=== PATIENT | male | born 1960 | race American Indian/Alaskan Native ===

== ENCOUNTER 2019-01-16 08:07 | Emergency (ER) | payer OTHER ==
[2019-01-16 08:28] VITALS: BP 133/81
[2019-01-16] MEDS ORDERED: CYCLOBENZAPRINE 10 MG TAB PO ONE (08:46)
[2019-01-16] MEDS ORDERED: KETOROLAC 30 MG/1 ML INJ IM ONE (08:46)
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
== END 2019-01-16 09:44 | disposition home or self-care (01) ==
LOC: ED 08:07
DX: S16.1XXA Strain of muscle, fascia and tendon at neck level, initial encounter (principal); R07.89 Other chest pain; M79.605 Pain in left leg; G89.29 Other chronic pain; I10 Essential (primary) hypertension; F17.200 Nicotine dependence, unspecified, uncomplicated; Z79.899 Other long term (current) drug therapy
CPT/HCPCS: 71046; 72040; 96372; 99283; J1885